=== PATIENT | female | born 1975 | race Caucasian/White ===

== ENCOUNTER → 2017-12-26 09:39 | Outpatient (CLI) | payer OTHER, SELFPAY ==
[2017-12-26 10:07] VITALS: BP 120/78; PULSE 73; RESP 18; TEMP 37.1; O2SAT 100
[2017-12-26] MEDS: LEUPROLIDE DEPOT 11.25 MG SYR IM (10:12)
== END ==
PROVIDERS: Family Provider Obstetrics & Gynecology; PCP Obstetrics & Gynecology; Visit Provider Obstetrics & Gynecology
DX: N80.9 Endometriosis, unspecified (principal)
CPT/HCPCS: 96372; J1950

== ENCOUNTER → 2018-04-03 15:58 | Outpatient (CLI) | payer OTHER, SELFPAY | PROVIDERS: Family Provider Obstetrics & Gynecology; PCP Obstetrics & Gynecology; Visit Provider Obstetrics & Gynecology | DX: R30.0 Dysuria (principal) | CPT/HCPCS: 87086 ==